=== PATIENT | female | born 1975 | race Caucasian/White ===

== ENCOUNTER 2018-01-18 22:55 | Emergency (ER) | payer OTHER, BC ==
[~2018-01-18] VITALS: Ht 165.1 cm; Wt 188.7 kg
[~2018-01-18 22:55] MED LIST: ACET-2650 PO; ASPI-504 PO; BUPR150T9 PO; ERGO400C PO; FEXO180T PO; FLUO40CA12 PO; FURO80TA3 PO; KCL20TCR PO; LEVO250T PO; MONT10TA21 PO; MULT-974 PO; SPIR25TA3 PO; VITA100C5 PO
[2018-01-18] MEDS ORDERED: NITROGLYCERIN 0.4 MG SL TABS BTL 25'S SL PRN (23:15)
[2018-01-18 23:19] LABS: BASOPHILS % (AUTO) 0 % (0-10); EOSINOPHILS # (AUTO) 0.1 10^3/uL (0.0-0.3); EOSINOPHILS % (AUTO) 1 % (0-10); HEMATOCRIT 36 % (35-52); HEMOGLOBIN 12.1 G/DL (11.5-16.0); LYMPHOCYTES # (AUTO) 2.6 X 10^3 (1.0-4.0); LYMPHOCYTES % (AUTO) 29 % (12-44); MEAN CORPUSCULAR HEMOGLOBIN 27 PG (25-34); MEAN CORPUSCULAR HGB CONC 33 G/DL (32-36); MEAN CORPUSCULAR VOLUME 82 FL (80-99); MEAN PLATELET VOLUME 11.7 FL (7.4-10.4); MONOCYTES # (AUTO) 0.5 X 10^3 (0.0-1.0); MONOCYTES % (AUTO) 6 % (0-12); NEUTROPHILS # (AUTO) 5.8 X 10^3 (1.8-7.8); NEUTROPHILS % (AUTO) 64 % (42-75); PLATELET COUNT 273 10^3/uL (130-400); RED BLOOD COUNT 4.42 10^6/uL (4.35-5.85); RED CELL DISTRIBUTION WIDTH 15.9 % (10.0-14.5)
--- NOTE | 2018-01-18 23:23 | ED Chest Pain ---
General Chief Complaint: Chest Pain Stated Complaint: SOA/CP Source: patient Exam Limitations: no limitations History of Present Illness Date Seen by Provider: Jan 18, 2018 Time Seen by Provider: 23:00 Initial Comments Here with report of left-sided chest pain that radiates to the left arm. Onset approximately 30 minutes ago. 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 Notes that she's been short of air today it's worse with activity. She is visiting from [place]. She was at the [employer] home game [employer]. Did note that she had increasing activity today and she is having increasing shortness of air with activity. She does have history of heart failure and takes medications for that. Last episode of something similar, she had hypokalemia. Reports taking her meds as directed. Reports better after nitroglycerin. She was given aspirin as well by EMS. Timing/Duration: 1/2 hour Severity/Quality: moderate (once), pressure Location: central Radiation: arms Prior CP/Workup: cardiac cath (few years ago. 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: Yes Associated Symptoms: No abdominal pain, No back pain; diaphoresis, dizziness; No fever/chills, No nausea/vomiting; shortness of breath, weakness Allergies and Home Medications Allergies Coded Allergies: hydrocodone (Verified Allergy, Unknown, 01/18/18) meperidine (Verified Allergy, Unknown, 01/18/18) sumatriptan (Verified Allergy, Unknown, 01/18/18) Uncoded Allergies: VIVAX (Allergy, Mild, 01/18/18) Home Medications Acetaminophen 650 Mg Tablet.er, 650 MG PO BID, (Reported) Aspirin 81 Mg Tab.chew, 80 MG PO DAILY, (Reported) Bupropion HCl 150 Mg Tablet.er, 150 MG PO BID, (Reported) Cholecalciferol (Vitamin D3) 400 Unit Capsule, 400 UNIT PO DAILY, (Reported) Fexofenadine Hcl 180 Mg Tablet, 180 MG PO DAILY, (Reported) Fluoxetine HCl 40 Mg Capsule, 40 MG PO DAILY, (Reported) Furosemide 80 Mg Tablet, 80 MG PO BID, (Reported) Levofloxacin 250 Mg Tab, 250 MG PO DAILY, (Reported) Montelukast Sodium 10 Mg Tablet, 80 MG PO DAILY, (Reported) Multivitamin 1 Each Tablet, 1 TAB PO DAILY, (Reported) Potassium Chloride 20 Meq Tab, 20 MEQ PO 0, (Reported) Spironolactone 25 Mg Tablet, 25 MG PO DAILY, (Reported) Vitamin E 100 Unit Capsule, 100 UNIT PO DAILY, (Reported) Patient Home Medication List Home Medication List Reviewed: Yes Review of Systems Review of Systems Constitutional: see HPI; No chills, No fever; weakness EENTM: No Symptoms Reported Respiratory: See HPI, SOA With Exertion Cardiovascular: Chest Pain, Edema, Lightheadedness Gastrointestinal: Denies Abdominal Pain, Denies Nausea, Denies Vomiting Genitourinary: No Symptoms Reported Musculoskeletal: no symptoms reported Skin: no symptoms reported Psychiatric/Neurological: See HPI; Denies Headache Endocrine: No Symptoms Reported All Other Systems Reviewed Negative Unless Noted: Yes Past Vpsrqtn-Lzzhqy-Xypcqs Hx Past Med/Social Hx: Reviewed Nursing Past Med/Soc Hx Patient Social History Alcohol Use: Denies Use Recreational Drug Use: No Smoking Status: Unknown if Ever Smoked Past Medical History Surgeries: Yes (ablation) Cardiac Respiratory: Yes Chronic Bronchitis Cardiac: Yes Hypertension, Irregular Heartbeat Gastrointestinal: Yes Gastroesophageal Reflux Endocrine: Yes Hypothyroidsim Psychosocial: Yes Depression Family Medical History Reviewed Nursing Family Hx No Pertinent Family Hx Physical Exam Vital Signs Vital Signs - First Documented 01/18/18 22:55 Temp 97.6 Pulse 68 Resp 20 B/P (MAP) 150/87 (108) Pulse Ox 96 O2 Delivery Room Air Capillary Refill : Height, Weight, BMI Height: '" Weight: lbs. oz. kg; BMI Method: General Appearance: No Apparent Distress, WD/WN HEENT: PERRL/EOMI, Pharynx Normal Neck: Non Tender, Supple Respiratory: Lungs Clear, Normal Breath Sounds Cardiovascular: Regular Rate, Rhythm, No Murmur Gastrointestinal: Non Tender, Soft Extremity: Normal Range of Motion, Non Tender, Pedal Edema (3+ to bilateral lower extremities) Neurologic/Psychiatric: Alert, Oriented x3, No Motor/Sensory Deficits Skin: Warm/Dry, Other (venous stasis changes to bilateral lower extremities) Progress/Results/Core Measures Results/Orders Lab Results Laboratory Tests Test 01/18/18 22:59 01/19/18 01:30 Range/Units White Blood Count 9.0 4.3-11.0 10^3/uL Red Blood Count 4.42 4.35-5.85 10^6/uL Hemoglobin 12.1 11.5-16.0 G/DL Hematocrit 36 35-52 % Mean Corpuscular Volume 82 80-99 FL Mean Corpuscular Hemoglobin 27 25-34 PG Mean Corpuscular Hemoglobin Concent 33 32-36 G/DL Red Cell Distribution Width 15.9 H 10.0-14.5 % Platelet Count 273 130-400 10^3/uL Mean Platelet Volume 11.7 H 7.4-10.4 FL Neutrophils (%) (Auto) 64 42-75 % Lymphocytes (%) (Auto) 29 12-44 % Monocytes (%) (Auto) 6 0-12 % Eosinophils (%) (Auto) 1 0-10 % Basophils (%) (Auto) 0 0-10 % Neutrophils # (Auto) 5.8 1.8-7.8 X 10^3 Lymphocytes # (Auto) 2.6 1.0-4.0 X 10^3 Monocytes # (Auto) 0.5 0.0-1.0 X 10^3 Eosinophils # (Auto) 0.1 0.0-0.3 10^3/uL Basophils # (Auto) 0.0 0.0-0.1 10^3/uL Prothrombin Time 14.6 12.2-14.7 SEC INR Comment 1.1 0.8-1.4 Activated Partial Thromboplast Time 32 24-35 SEC D-Dimer 0.34 0.00-0.49 UG/ML Sodium Level 140 135-145 MMOL/L Potassium Level 3.3 L 3.6-5.0 MMOL/L Chloride Level 99 98-107 MMOL/L Carbon Dioxide Level 28 21-32 MMOL/L Anion Gap 13 5-14 MMOL/L Blood Urea Nitrogen 10 7-18 MG/DL Creatinine 0.76 0.60-1.30 MG/DL Estimat Glomerular Filtration Rate > 60 BUN/Creatinine Ratio 13 Glucose Level 112 H 70-105 MG/DL Calcium Level 9.6 8.5-10.1 MG/DL Corrected Calcium 9.4 8.5-10.1 MG/DL Magnesium Level 2.2 1.8-2.4 MG/DL Total Bilirubin 0.6 0.1-1.0 MG/DL Aspartate Amino Transf (AST/SGOT) 15 5-34 U/L Alanine Aminotransferase (ALT/SGPT) 19 0-55 U/L Alkaline Phosphatase 101 40-136 U/L Myoglobin 19.7 19.8 10.0-92.0 NG/ML Troponin I < 0.30 < 0.30 <0.30 NG/ML B-Type Natriuretic Peptide 17.1 <100.0 PG/ML Total Protein 7.6 6.4-8.2 GM/DL Albumin 4.3 3.2-4.5 GM/DL My Orders Orders - BHAVIN BLOOD MD Cbc With Automated Diff (01/18/18:08) Magnesium (01/18/18:08) Chest 1 View, Ap/Pa Only (01/18/18:08) Ekg Tracing (01/18/18:08) Cardiac Profile 1 (01/18/18:) Comprehensive Metabolic Panel (01/18/18:) Myoglobin Serum (01/18/18:08) Protime With Inr (01/18/18:) Partial Thromboplastin Time (01/18/18:) O2 (01/18/18:) Monitor-Rhythm Ecg Trace Only (01/18/18:08) Lipid Panel (01/19/18 06:00) Nitroglycerin 0.4 Mg Btl 25's (Nitrostat (01/18/18 23:15) Saline Lock/Iv-Start (01/18/18 23:08) BNP (01/18/18 23:08) Fibrin Degradation Products (01/18/18 23:08) Albuterol Pre-Mix Nebs (Rt) (Proventil (01/19/18 00:51) Svn Small Volume Nebulizer (01/19/18 00:51) Ekg Tracing (01/19/18 01:24) Troponin I (01/19/18 01:24) Myoglobin Serum (01/19/18 01:24) Medications Given in ED Current Medications Medications Dose Ordered Sig/Maxim Route Start Time Stop Time Status Last Admin Dose Admin Nitroglycerin 0.4 mg UD PRN SL 01/18/18 23:15 01/18/18 23:25 0.4 MG Vital Signs/I&O 01/18/18 01/18/18 01/19/18 22:55 22:55 01:12 Temp 97.6 Pulse 68 Resp 20 B/P (MAP) 150/87 (108) Pulse Ox 96 97 O2 Delivery Room Air Room Air Progress Progress Note : Progress Note Seen and evaluated. IV, labs, EKG and chest x-ray ordered. Nitroglycerin sublingual when necessary ordered. Monitor patient. 0100: No acute findings. We will repeat labs and EKG at 130 a.m. Albuterol neb ordered. Monitor patient. 0215: No acute findings. Repeat labs normal. Repeat EKG normal. Discharged home with return precautions. Patient verbalize understanding instructions and agreement with plan. Initial ECG Impression Date: Jan 18, 2018 Initial ECG Impression Time: 23:01 Initial ECG Rate: 70 Initial ECG Rhythm: Normal Sinus Initial ECG Impression: Normal Initial ECG Comparisson: No Previous ECG Available Comment Sinus rhythm with normal axis. No evidence of ST elevation CO. No previous available for comparison. Interpreted by me. EKG : EKG Time: 01:30 Rate: 74 Comment Sinus rhythm with normal axis. No evidence of ST elevation [place]. Similar to previous done earlier today. Interpreted by me. Diagnostic Imaging Diagonstic Imaging: Xray Plain Films/CT/US/NM/MRI: chest Comments No acute findings Departure Impression Primary Impression: Chest pain Qualified Codes: R07.9 - Chest pain, unspecified Additional Impression: Dyspnea Qualified Codes: R06.09 - Other forms of dyspnea Disposition: 01 HOME, SELF-CARE Condition: Improved Departure-Patient Inst. Decision time for Depature: 02:19 Patient Instructions: Chest Pain (DC), Shortness of Breath (Dyspnea) (DC) Add. Discharge Instructions: All discharge instructions reviewed with patient and/or family. Voiced understanding. Continue home medications as previously prescribed. Follow-up with your doctor this week for recheck and further evaluation. Return for worse pain, fever, vomiting, weakness, breathing problems or other concerns as needed. BHAVIN BLOOD MD Jan 18, 2018 23:23
[2018-01-18 23:24] LABS: INR 1.1 (0.8-1.4); PROTHROMBIN TIME PATIENT 14.6 SEC (12.2-14.7)
[2018-01-18 23:27] LABS: ALANINE AMINOTRANSFERASE 19 U/L (0-55); ALBUMIN 4.3 GM/DL (3.2-4.5); ALKALINE PHOSPHATASE 101 U/L (40-136); BILIRUBIN,TOTAL 0.6 MG/DL (0.1-1.0); BUN/CREATININE RATIO 13; CALCIUM 9.6 MG/DL (8.5-10.1); CARBON DIOXIDE 28 MMOL/L (21-32); CHLORIDE 99 MMOL/L (98-107); CREATININE SERUM 0.76 MG/DL (0.60-1.30); GFR ESTIMATED > 60; GLUCOSE 112 MG/DL (70-105); MAGNESIUM 2.2 MG/DL (1.8-2.4); POTASSIUM 3.3 MMOL/L (3.6-5.0); SODIUM 140 MMOL/L (135-145); TOTAL PROTEIN 7.6 GM/DL (6.4-8.2)
[2018-01-18 23:33] LABS: MYOGLOBIN SERUM 19.7 NG/ML (10.0-92.0)
[2018-01-19] MEDS ORDERED: RT-ALBUTEROL SULF 2.5 MG/3 ML PRE-MIX VIAL INH STA (00:51)
[2018-01-19 02:00] LABS: MYOGLOBIN SERUM 19.8 NG/ML (10.0-92.0)
[2018-01-19 02:27] VITALS: BP 145/80
--- NOTE | 2018-01-19 06:48 | Diagnostic Imaging Report ---
PATIENT HISTORY: TECHNIQUE: Single frontal view of the chest COMPARISON: None FINDINGS: Lung volumes are normal. No focal consolidation is seen. There is no pleural effusion or pneumothorax. The cardiac silhouette is upper normal in size. No acute osseous abnormality seen. IMPRESSION: No acute pulmonary abnormality. Dictated by: Dictated on workstation # [id number]
== END 2018-01-19 02:27 | disposition home or self-care (01) ==
LOC: ER 22:56
DX: R07.89 Other chest pain (principal); R06.00 Dyspnea, unspecified; I25.2 Old myocardial infarction; I10 Essential (primary) hypertension; K21.9 Gastro-esophageal reflux disease without esophagitis; E03.9 Hypothyroidism, unspecified; F32.9 Major depressive disorder, single episode, unspecified; Z88.5 Allergy status to narcotic agent; Z88.8 Allergy status to other drugs, medicaments and biological substances; Z79.82 Long term (current) use of aspirin
CPT/HCPCS: 36415; 71045; 80053; 83735; 83874; 83880; 84484; 85025; 85379; 85610; 85730; 93005; 93041; 94640